=== PATIENT | female | born 1990 | race African-American/Black ===

== ENCOUNTER 2017-09-03 19:43 | Emergency (ER) | payer OTHER ==
--- NOTE | 2017-09-03 19:53 | ER Document Report ---
ED Medical Screen (RME) - General Chief Complaint: Vag Bleeding, +preg <12wks Stated Complaint: VAGINAL BLEEDING Time Seen by Provider: 09/03/17 19:51 Notes: Patient is a 27-year-old female, 12 weeks , presents with small amount of vaginal spotting. She denies abdominal pain, fevers or urinary symptoms. Pt's blood type is B+. PE: No acute distress. Non-tender abdomen. I have greeted and performed a rapid initial assessment of this patient. A comprehensive ED assessment and evaluation of the patient, analysis of test results and completion of the medical decision making process will be conducted by additional ED providers. TRAVEL OUTSIDE OF THE [place] IN LAST 30 DAYS: No - Related Data Allergies/Adverse Reactions: codeine [Codeine] Allergy (Verified 06/05/10 17:13) Physical Exam - Vital signs Vitals: Temp Pulse Resp BP Pulse Ox 98.8 F 103 H 15 119/74 99 09/03/17 19:47 09/03/17 19:47 09/03/17 19:47 09/03/17 19:47 09/03/17 19:47 Course - Vital Signs Vital signs: Temp Pulse Resp BP Pulse Ox 98.8 F 103 H 15 119/74 99 09/03/17 19:47 09/03/17 19:47 09/03/17 19:47 09/03/17 19:47 09/03/17 19:47 Doctor's Discharge - Discharge Referrals: HARRISON COLLIER DO [Primary Care Provider] - Follow up as needed
--- NOTE | 2017-09-03 20:18 | ER Document Report ---
ED GI/ - General Chief Complaint: Vag Bleeding, +preg <12wks Stated Complaint: VAGINAL BLEEDING Time Seen by Provider: 09/03/17 19:51 Mode of Arrival: Ambulatory Information source: Patient TRAVEL OUTSIDE OF THE [place] 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 Menstrual period history: - Related Data Allergies/Adverse Reactions: codeine [Codeine] Allergy (Verified 06/05/10 17:13) Past Medical History - General Information source: Patient Last Menstrual Period: 06/07/17 - Social History Smoking Status: Never Smoker Chew tobacco use (# tins/day): No Frequency of alcohol use: None Drug Abuse: None Lives with: Spouse/Significant other Family History: Reviewed & Not Pertinent Patient has suicidal ideation: No Patient has homicidal ideation: No - Medical History Medical History: Negative Renal/ Medical History: Denies: Hx Peritoneal Dialysis Review of Systems - Review of Systems Constitutional: No symptoms reported EENT: No symptoms reported Cardiovascular: No symptoms reported Respiratory: No symptoms reported Gastrointestinal: No symptoms reported Genitourinary: No symptoms reported Female Genitourinary: See HPI Musculoskeletal: No symptoms reported Skin: No symptoms reported Neurological/Psychological: No symptoms reported Physical Exam - Vital signs Vitals: Temp Pulse Resp BP Pulse Ox 98.8 F 103 H 15 119/74 99 09/03/17 19:47 09/03/17 19:47 09/03/17 19:47 09/03/17 19:47 09/03/17 19:47 Interpretation: Tachycardic. No: Hypotensive, Tachypneic - General General appearance: Appears well, Alert In distress: None - HEENT Head: Normocephalic Eyes: Normal Conjunctiva: Normal Ears: Normal Nasal: Normal Mouth/Lips: Normal Mucous membranes: Normal - Respiratory Respiratory status: No respiratory distress - Cardiovascular Rhythm: Regular - Abdominal Inspection: Gravid female - Back Back: Normal - Extremities General upper extremity: Normal inspection General lower extremity: Normal inspection. No: Tender, Edema - Neurological Neuro grossly intact: Yes Cognition: Normal Orientation: AAOx4 - Psychological Associated symptoms: Normal affect, Normal mood - Skin Skin Temperature: Warm Skin Moisture: Dry Skin Color: Normal Skin Turgor: Elastic Course - Vital Signs Vital signs: Temp Pulse Resp BP Pulse Ox 99.5 F 83 20 118/76 98 09/03/17 21:07 09/03/17 21:07 09/03/17 21:07 09/03/17 21:07 09/03/17 21:07 - Laboratory Laboratory results interpreted by me: 09/03/17 20:00 Urine Blood LARGE H Urine Urobilinogen 2.0 H Ur Leukocyte Esterase SMALL H Discharge - Discharge Clinical Impression: Vaginal bleeding in patient at less than 20 weeks gestation Condition: Stable Disposition: HOME, SELF-CARE Instructions: Bleeding During Early ([facility]) Additional Instructions: STRICT BED REST UNTIL BLEEDING STOPS PLUS 12 HOURS, THEN GRADUALLY INCREASE ACTIVITY. DRINK PLENTY OF FLUIDS. FOLLOW UP WITH OB-WHEAT SHIPPER FOR ROUTINE CARE. RETURN TO E.R. IF PROBLEMS. Referrals: BRYANT KUNZ MD [ACTIVE STAFF] - Follow up as needed
[2017-09-03 20:22] LABS: APPEARANCE,URINE SLIGHTLY-CLOUDY; BILIRUBIN,URINE NEGATIVE (NEGATIVE); COLOR,URINE YELLOW; GLUCOSE, URINE NEGATIVE (NEGATIVE); KETONES,URINE NEGATIVE (NEGATIVE); LEUKOCYTE ESTERASE,URINE SMALL (NEGATIVE); NITRITE,URINE NEGATIVE (NEGATIVE); PROTEIN,URINE NEGATIVE (NEGATIVE); URINE SPECIFIC GRAVITY 1.006
--- NOTE | 2017-09-03 20:58 | RADIOLOGY REPORT (SQ) ---
EXAM DESCRIPTION: U/S OB LIMITED COMPLETED DATE/TIME: 09/03/2017 8:47 pm REASON FOR STUDY: 12 weeks , vaginal bleeding COMPARISON: None. TECHNIQUE: Limited transabdominal grayscale ultrasound for evaluation of specific requested obstetri winnie parameters. LIMITATIONS: None. FINDINGS: CERVICAL LENGTH: 5.1 cm. Closed. AFSHIN: Not measured. Cm. FHR: 155 beats per minute. PRESENTATION: Cephalic. OTHER: Placenta is posterior and fundal and grade 1. IMPRESSION: LIMITED OBSTETRICAL ULTRASOUND WITH MEASURED PARAMETERS DELINEATED ABOVE. Trimester of : First trimester - 0 to 13 weeks. TECHNICAL DOCUMENTATION: JOB ID: [id number] [employer]- All Rights Reserved Reading location - IP/workstation name: [email or web address]
[2017-09-03 21:15] VITALS: BP 118/76
== END 2017-09-03 21:20 | disposition home or self-care (01) ==
LOC: ER 19:43
DX: O20.9 Hemorrhage in early pregnancy, unspecified (principal); Z3A.12 12 weeks gestation of pregnancy; Z88.6 Allergy status to analgesic agent
CPT/HCPCS: 76815; 81001; 99284

== ENCOUNTER 2018-03-08 08:38 | Outpatient (CLI) | payer MEDICAID | END 2018-03-08 09:28 | disposition home or self-care (01) | LOC: LC 08:38 | PROVIDERS: ATTEND Obstetrics & Gynecology | PROC: 4A1HXCZ Monitoring of Products of Conception, Cardiac Rate, External Approach (ICD-10-PCS; principal; 2018-03-08) | DX: Z34.93 Encounter for supervision of normal pregnancy, unspecified, third trimester (principal) | CPT/HCPCS: 59025 ==

== ENCOUNTER 2018-03-11 15:16 | Inpatient (IN) | payer MEDICAID ==
[2018-03-11] MEDS ORDERED: OXYTOCIN/NORMAL SALINE 1,000 ML IV PRN (15:32)
[2018-03-11] MEDS ORDERED: DINOPROSTONE 10 MG VAGINAL INSERT.SR PV PRN (15:32)
[2018-03-11] MEDS ORDERED: RINGERS SOLUTION,LACTATED 1,000 ML IV PRN ×2 (15:32→15:36)
[2018-03-11] MEDS ORDERED: RINGERS SOLUTION,LACTATED 300 ML IV ONE ×2 (15:32→15:36)
[2018-03-11] MEDS ORDERED: OXYTOCIN/NORMAL SALINE 20 UNIT/1,000 ML RTUINJ IV PRN ×2 (15:36→19:42)
--- NOTE | 2018-03-11 16:08 | Admission Physical ---
Datetime Report Generated by CPN: 03/11/2018 16:07 CURRENT ADMISSION Hx Assessment: The History has been Reviewed and is Current Chief Complaint: Scheduled Induction of Labor Indication for Induction: IUGR Admit Impression : Term, Intrauterine ; No Active Labor; Intact Membranes; Induction of Labor Admit Plan: Admit to Unit; Initiate Labor Induction Protocol ALLERGIES Medication Allergies: Yes Medication Allergies: codeine (03/11/2018) Latex: No Latex Allergies OBSTETRICAL HISTORY EDC: 03/14/2018 00:00 : 2 Para: 1 Gestational Diabetes: No Rh Sensitization: No Incompetent Cervix: No JULIANA: No Infertility: No ART Treatment: No Uterine Anomaly: No IUGR: Yes Hx Previous C/S: No Macrosomia: No Hx Loss/Stillborn: No PIH: No Hx : No Placenta Previa/Abruption: No Depression/PP Depression: No PTL/PROM: No Post Hemorrhage: Yes Current Procedures: Ultrasound; NST Obstetrical History Comments: G1 2010 39 weeks girl 6 lbs induced for oligo G2 current IUGR 10% Believes PPH with first child no transfusion SEE RECORDS Alcohol: No Marijuana : No Cocaine: No Other Illicit Drugs: No Cigarettes: Never Smoker. 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 Surgery: No Heart Disease: No Hosp/Surgery: No Autoimmune Disorder: No Anesthetic Complications: No Kidney Disease: No Abnormal Pap Smear: No Neuro/Epilepsy: No Psychiatric Disorders: No Other Medical Diseases: No Hepatitis/Liver Disease: No Significant Family History: No Varicosities/Phlebitis: No Trauma/Violence : No Thyroid Dysfunction: No PHYSICAL EXAM General: Normal HEENT: Deferred Neurologic: Normal Thyroid: Normal Heart: Normal Lungs: Normal Breast: Deferred Back: Normal Abdomen: Normal Genitourinary Exam: Normal Extremities: Normal DTRs: Normal Pelvic Type: Adequate Physical Exam Comments: GBS neg IUGR, AC <3, 3.8%, BPD 29.5%, EFW 6-4 FETUS A EGA: 39.4 Monitoring: External US Variability: Moderate 6-25bpm Presentation: Vertex Admit Comment: admitted to LD for IOL for IUGR, <3%, irreg uc's, Cat 1 strip Plan: Pitocin, anticipate PLANS FOR LABOR AND DELIVERY Labor and Delivery: Plan Pain Management: None Feeding Preference: Both Benefit of Breast Feed Discussed: Yes Circumcision: Yes INFORMED CONSENT Assignment: Claritza Gregory MD Signature: with User ID: [email or web address] : with User ID: [email or web address]
[2018-03-11 16:09] LABS: APPEARANCE,URINE CLEAR; BILIRUBIN,URINE NEGATIVE (NEGATIVE); COLOR,URINE YELLOW; GLUCOSE, URINE NEGATIVE (NEGATIVE); KETONES,URINE NEGATIVE (NEGATIVE); LEUKOCYTE ESTERASE,URINE NEGATIVE (NEGATIVE); NITRITE,URINE NEGATIVE (NEGATIVE); PROTEIN,URINE NEGATIVE (NEGATIVE); URINE SPECIFIC GRAVITY 1.012
[2018-03-11 16:11] LABS: ABSOLUTE LYMPHOCYTES (AUTO) 1.1 10^3/uL (0.5-4.7); ABSOLUTE MONOCYTES (AUTO) 0.9 10^3/uL (0.1-1.4); ABSOLUTE NEUT (AUTO) 5.8 10^3/uL (1.7-8.2); BASOPHILS % (AUTO) 0.2 % (0-2); EOSINOPHILS % (AUTO) 0.3 % (0-6); HEMATOCRIT 39.6 % (36.0-47.0); HEMOGLOBIN 13.3 g/dL (12.0-15.5); MEAN CORPUSCULAR HEMOGLOBIN 29.4 pg (27.0-33.4); MEAN CORPUSCULAR HGB CONC 33.7 g/dL (32.0-36.0); MEAN CORPUSCULAR VOLUME 87 fl (80-97); MONOCYTES % (AUTO) 11.2 % (3-13); PLATELET COUNT 197 10^3/uL (150-450); RED BLOOD COUNT 4.54 10^6/uL (3.72-5.28); RED CELL DISTRIBUTION WIDTH 14.3 % (11.5-14.0); SEGMENTED NEUTROPHILS % (AUTO) 74.3 % (42-78); TOTAL CELLS COUNTED % (AUTO) 100 %; WHITE BLOOD COUNT 7.9 10^3/uL (4.0-10.5)
[2018-03-11 16:21] LABS: URINE AMPHETAMINES SCREEN NEGATIVE; URINE BARBITURATES SCREEN NEGATIVE; URINE BENZODIAZEPINES SCREEN NEGATIVE; URINE COCAINE SCREEN NEGATIVE; URINE MARIJUANA (THC) SCREEN NEGATIVE; URINE METHADONE SCREEN NEGATIVE; URINE PHENCYCLIDINE SCREEN NEGATIVE
[2018-03-11] MEDS ORDERED: OXYTOCIN 10 UNIT/ML VIAL ONE (16:37)
[2018-03-11] MEDS ORDERED: LIDOCAINE 1% INJ-PF (10 MG/ML) 30 ML SDV ONE (16:37)
[2018-03-11] MEDS ORDERED: MISOPROSTOL 0.2 MG TABLET ONE (16:37)
[2018-03-11] MEDS ORDERED: OXYTOCIN/NORMAL SALINE 20 UNIT/1,000 ML RTUINJ ONE (16:37)
[2018-03-11] MEDS ORDERED: DIBUCAINE 1% OINTMENT 28 GM TP PRN (19:42)
[2018-03-11] MEDS ORDERED: ZOLPIDEM TARTRATE 5 MG TABLET PO PRN (19:42)
[2018-03-11] MEDS ORDERED: DIPH/PERTUSS(ACELL)/TETANUS VAC/PF 0.5 ML SYR (>=10YO) IM PRN (19:42)
[2018-03-11] MEDS ORDERED: BENZOCAINE/MENTHOL AEROSOL SPRAY 56 ML TOP PRN (19:42)
[2018-03-11] MEDS ORDERED: MEASLES,MUMPS&RUBELLA VACC/PF 0.5 ML VIAL SUBCUT PRN (19:42)
[2018-03-11] MEDS: IBUPROFEN 800 MG TABLET PO SCH (22:15)
[2018-03-12] MEDS: IBUPROFEN 800 MG TABLET PO SCH ×3 (05:57→22:30)
[2018-03-12 07:11] LABS: HEMATOCRIT 37.2 % (36.0-47.0); HEMOGLOBIN 12.5 g/dL (12.0-15.5); MEAN CORPUSCULAR HEMOGLOBIN 29.2 pg (27.0-33.4); MEAN CORPUSCULAR HGB CONC 33.6 g/dL (32.0-36.0); MEAN CORPUSCULAR VOLUME 87 fl (80-97); PLATELET COUNT 184 10^3/uL (150-450); RED BLOOD COUNT 4.28 10^6/uL (3.72-5.28); RED CELL DISTRIBUTION WIDTH 14.1 % (11.5-14.0)
[2018-03-12] MEDS: SENNOSIDES/DOCUSATE 8.6-50 MG 1 EACH TABLET PO SCH (09:36)
[2018-03-12] MEDS: DOCUSATE SODIUM 100 MG CAPSULE PO SCH ×2 (09:36→17:53)
[2018-03-12] MEDS: PRENATAL VITAMIN W DHA CAPSULE PO SCH (09:36)
[2018-03-12] MEDS: FERROUS SULFATE 325 MG TABLET PO SCH ×2 (09:36→17:53)
--- NOTE | 2018-03-12 13:20 | PDOC PROGRESS REPORT ---
Subjective-OB Progress Note for:: 03/12/18 Subjective: Pt doing well, no concerns. She reports light bleeding, reg diet and voiding without difficulty. Physical Exam (OB) Vital Signs: Temp Pulse Resp BP Pulse Ox 98.4 F 72 16 108/70 98 03/12/18 07:49 03/12/18 07:49 03/12/18 07:49 03/12/18 07:49 03/12/18 07:49 Intake & Output 03/11/18 03/12/18 03/13/18 06:59 06:59 06:59 Weight 72.9 kg - Lochia Lochia Amount: Small 10-25 ml Lochia Color: Rubra/Red - Abdomen Description: Soft Hernia Present: No Fundal Description: Firm, Midline Fundal Height: u/u - u/2 Objective-Diagnostic Laboratory: 03/12/18 06:43 03/11/18 03/11/18 03/11/18 15:26 15:51 15:51 WBC 7.9 RBC 4.54 Hgb 13.3 Hct 39.6 MCV 87 MCH 29.4 MCHC 33.7 RDW 14.3 H Plt Count 197 Seg Neutrophils % 74.3 Lymphocytes % 14.0 Monocytes % 11.2 Eosinophils % 0.3 Basophils % 0.2 Absolute Neutrophils 5.8 Absolute Lymphocytes 1.1 Absolute Monocytes 0.9 Absolute Eosinophils 0.0 Absolute Basophils 0.0 Urine Color YELLOW Urine Appearance CLEAR Urine pH 6.0 Ur Specific [place] 1.012 Urine Protein NEGATIVE Urine Glucose (UA) NEGATIVE Urine Ketones NEGATIVE Urine Blood NEGATIVE Urine Nitrite NEGATIVE Ur Leukocyte Esterase NEGATIVE Urine WBC (Auto) 1 Urine RBC (Auto) 0 Blood Type B POSITIVE Antibody Screen NEGATIVE 03/12/18 06:43 WBC 11.0 H RBC 4.28 Hgb 12.5 Hct 37.2 MCV 87 MCH 29.2 MCHC 33.6 RDW 14.1 H Plt Count 184 Seg Neutrophils % Lymphocytes % Monocytes % Eosinophils % Basophils % Absolute Neutrophils Absolute Lymphocytes Absolute Monocytes Absolute Eosinophils Absolute Basophils Urine Color Urine Appearance Urine pH Ur Specific [place] Urine Protein Urine Glucose (UA) Urine Ketones Urine Blood Urine Nitrite Ur Leukocyte Esterase Urine WBC (Auto) Urine RBC (Auto) Blood Type Antibody Screen Assessment and Plan(PN) - Assessment and Plan (1) Vaginal delivery Is this a current diagnosis for this admission?: Yes (2) IUGR (intrauterine growth retardation), delivered, current hospitalization Is this a current diagnosis for this admission?: Yes - Time Spent with Patient Time with patient: Less than 15 minutes Medications reviewed and adjusted accordingly: Yes - Disposition Anticipated Discharge: Home Within: within 24 hours
[2018-03-13] MEDS: IBUPROFEN 800 MG TABLET PO SCH ×2 (05:58→14:06)
[2018-03-13 08:19] VITALS: BP 104/63
--- NOTE | 2018-03-13 08:55 | PDOC DISCHARGE SUMMARY ---
Final Diagnosis Discharge Date: 03/13/18 - Final Diagnosis (1) Vaginal delivery Is this a current diagnosis for this admission?: Yes (2) IUGR (intrauterine growth retardation), delivered, current hospitalization Is this a current diagnosis for this admission?: Yes Discharge Data - Discharge Medication Home Medications: No122/Iron/Folic Acid [ Multi Tablet] 1 tab PO DAILY 03/08/18 Reason(s) for Admission: Induction of Labor Procedures: NST Intrapartum Procedure(s): Spontaneous Vaginal Delivery - Diagnosis Test Laboratory: Temp Pulse Resp BP Pulse Ox 98.4 F 72 16 108/70 98 03/12/18 07:49 03/12/18 07:49 03/12/18 07:49 03/12/18 07:49 03/12/18 07:49 03/11/18 03/11/18 03/12/18 15:26 15:51 06:43 RBC 4.54 4.28 Hgb 13.3 12.5 Hct 39.6 37.2 Urine Opiates Screen NEGATIVE - Discharge information/Instructions Discharge Activity: Balance Activity w/Rest, Pelvic Rest Discharge Diet: Regular Disposition: HOME, SELF-CARE Follow up with: [facility] in: 3, Weeks
[2018-03-13] MEDS: PRENATAL VITAMIN W DHA CAPSULE PO SCH (09:48)
[2018-03-13] MEDS: FERROUS SULFATE 325 MG TABLET PO SCH (09:48)
[2018-03-13] MEDS: SENNOSIDES/DOCUSATE 8.6-50 MG 1 EACH TABLET PO SCH (09:49)
[2018-03-13] MEDS: DOCUSATE SODIUM 100 MG CAPSULE PO SCH (09:49)
--- NOTE | 2018-03-22 15:01 | Delivery Summary ---
Del Sum A-C Datetime Report Generated by CPN: 03/22/2018 15:01 DELIVERY PERSONNEL DELIVERY PERSONNEL: [id number] Delivery Doctor:: Claritza Gregory MD Labor and Delivery Nurse:: Karan Pfeiffer RNbreast worker Nurse:: Kell Leyva RN Nursery Nurse:: Fabiana Escalante RN Nursery Nurse:: Mariam Chapa RN Spike Driver/OCCUPATIONAL THERAPY SUPERVISOR: Jessi Junior, ST MATERNAL INFORMATION Delivery Anesthesia: None Medications After Delivery: Pitocin Drip 20 Units/1000ml NSS; Cytotec 800mcg Per Rectum/Vagina Estimated Blood Loss (ml): 200 Maternal Complications: None Provider Comments: of a viable male at 1921 with an OA with nuchal cord x 2 presentation; light mec; APGARS 7, 9; no lacs LABOR SUMMARY EDC: 03/14/2018 00:00 No. Babies in Womb: 1 No. Babies in Womb: 1 Attempted: No Labor Anesthesia: None LABOR INFORMATION Reason for Induction: Intrauterine Growth Retardation Reason for Induction: Intrauterine Growth Retardation Onset of Labor: 03/11/2018 07:43 Complete Dilatation: 03/11/2018 19:09 Oxytocin: Induction Oxytocin: Induction Group B Beta Strep: Negative Antibiotics # of Doses: 0 Antibiotics Time of Last Dose: 0 Steroids Given: None Steroids Given: None Reason Steroids Not Administered: Not Applicable Reason Steroids Not Administered: Not Applicable MEMBRANES Membranes Rupture Method: Spontaneous Rupture of Membranes: 03/11/2018 18:01 Length of Rupture (hr): 1.33 Amniotic Fluid Color: Clear Amniotic Fluid Amount: Small Amniotic Fluid Odor: Normal STAGES OF LABOR Stage 1 hr: 11 Stage 1 min: 26 Stage 2 hr: 0 Stage 2 min: 12 Stage 3 hr: 0 Stage 3 min: 4 Total Time in Labor hr: 11 Total Time in Labor min: 42 VAGINAL DELIVERY Episiotomy: None Laceration #1: None Laceration Extension #1: N/A Laceration Repair: Not Applicable Initial Vag Sponge Count: 0 Final Vag Sponge Count: 0 Initial Vag Sharps Count: 0 Final Vag Sharps Count: 0 Sponge Count Correct: Yes Sharps Count Correct: Yes CSECTION DELIVERY Primary Indication: N/A Secondary Indication: N/A CSection Urgency: Emergency CSection Incidence: N/A Labor: N/A Elective: N/A CSection Incision: N/A BABY A INFORMATION Delivery Date/Time: 03/11/2018 19:21 Method of Delivery: Vaginal Born in Route : No : N/A Forceps: N/A Vacuum Extraction: N/A Shoulder Dystocia : No PRESENTATION/POSITION BABY A Presentation: Cephalic Presentation: Cephalic Presentation: Cephalic Cephalic Presentation: Vertex Vertex Position: Right Occipital Anterior Breech Presentation: N/A PLACENTA INFORMATION BABY A Placenta Delivery Time : 03/11/2018 19:25 Placenta Method of Delivery: Spontaneous Placenta Status: Delivered SCORES BABY A Heart Rate 1 min: >100 bpm Resp Effort 1 min: Good Cry Reflex Irritability 1 min: Cough or Sneeze or Pulls Away Muscle Tone 1 min: Some Flexion of Extremities Color 1 min: Blue/Pale Resuscitation Effort 1 min: N/A SCORE 1 MIN: 7 Heart Rate 5 min: >100 bpm Resp Effort 5 min: Good Cry Reflex Irritability 5 min: Cough or Sneeze or Pulls Away Muscle Tone 5 min: Active Motion Color 5 min: Body Henriette, Extremities Blue Resuscitation Effort 5 min: N/A SCORE 5 MIN: 9 INFANT INFORMATION BABY A Gestational Age at Delivery: 39.4 Gestational Status: Full Term- 39- 40.6 Weeks Outcome : Liveborn Infant Condition : Stable Sex: Male IDENTIFICATION BABY A Infant Verification Date/Time: 03/11/2018 19:37 ID Band Number: [id number] Mother's Name Verified: Yes RN Verifying Infant: JAdams Ness, RN Additional Verifying Personnel: A. Ptiok, RN WEIGHT/LENGTH BABY A Infant Birthweight (gm): 2900 Weight (lb): 6 Weight (oz): 6 Length (in): 19.50 Length (cm): 49.53 CORD INFORMATION BABY A No. Cord Vessels: 3 Nuchal Cord : Around Neck x2, Loose Cord Blood Taken: Yes-For Storage (Mom's Blood type +) Infant Suction: Mouth; Nose ASSESSMENT BABY A Skin to Skin: Yes Skin to Skin: Yes Skin to Skin Time (min): 60 BABY B INFORMATION : N/A SIGNATURES Signature: with User ID: [email or web address]
== END 2018-03-13 15:12 | disposition home or self-care (01) | DRG 807 ==
LOC: LR 15:16 → 2S 21:40
PROVIDERS: ADMIT Obstetrics & Gynecology; ATTEND Obstetrics & Gynecology
PROC: 10E0XZZ Delivery of Products of Conception, External Approach (ICD-10-PCS; principal; 2018-03-11)
PROC: 4A1HXCZ Monitoring of Products of Conception, Cardiac Rate, External Approach (ICD-10-PCS; 2018-03-11)
DX: O36.5930 Maternal care for other known or suspected poor fetal growth, third trimester, not applicable or unspecified (principal); Z37.0 Single live birth; O77.0 Labor and delivery complicated by meconium in amniotic fluid; O69.81X0 Labor and delivery complicated by cord around neck, without compression, not applicable or unspecified; Z88.6 Allergy status to analgesic agent; Z3A.39 39 weeks gestation of pregnancy
CPT/HCPCS: 36415; 80307; 81001; 85025; 85027; 86592; 86850; 86900; 86901; 88307; J2590; J3490